=== PATIENT | male | born 1955 | race Caucasian/White ===

== ENCOUNTER 2017-07-18 06:08 | Day surgery (SDC) | payer BC ==
[2017-07-17 12:29] VITALS: BMI 29.7
--- NOTE | 2017-07-18 01:44 | HP ---
SHORT STAY HISTORY AND PHYSICAL DATE OF ADMISSION: 07/18/2017 HISTORY OF PRESENT ILLNESS: This is a 62-year-old male who comes for colonoscopy for colon cancer [facility]. The patient has no specific GI symptoms. There is no family history of colon cancer. His bowel movements are regular. ALLERGIES: None. SOCIAL HISTORY: The patient does not smoke or drink alcohol. MEDICAL ILLNESSES: 1. Hypertension. 2. Elevated PSA. 3. History of GI bleeding in 2016, where he has no voice. 4. Benign prostatic hypertrophy. PHYSICAL EXAMINATION: VITAL SIGNS: Pulse is 70, blood pressure 130/80. HEENT: Conjunctivae clear. CARDIOVASCULAR SYSTEM: First and second heart sounds normal. LUNGS: Clear to auscultation. ABDOMEN: Soft to palpate. No organomegaly. No tenderness. No masses. ADMITTING DIAGNOSIS: Colonoscopy for colon cancer screening.
[2017-07-18] MEDS ORDERED: PROPOFOL 200 MG/20 ML VIAL ONE (11:13)
--- NOTE | 2017-07-18 12:45 | OP ---
DATE OF SURGERY: 07/18/2017 OPERATIVE PROCEDURE: Colonoscopy with polypectomy. PREOPERATIVE DIAGNOSIS: A 62-year-old male undergoing colonoscopy for colon cancer screeni ng. POSTOPERATIVE DIAGNOSES: 1. Large, broad-based sessile polyp at the lower sigmoid colon area. 2. Hemorrhoids. DESCRIPTION OF PROCEDURE: The patient was placed on his left lateral position and was given sedation by Anesthesia Department. A rectal exam was done before the scope was advanced into the rectum. No lesion felt on rectal exam. A [employer] video colonoscope was introduced into the rectum and advanced all the way into the cecum. The mucosa appears normal throughout the colon with normal vascular russ julia. The appendiceal orifice, ileocecal valve, cecum, no pathology seen. Withdrawal of scope in cec um, ascending colon, hepatic flexure, transverse colon, splenic flexure, no pathology seen. The desc ending colon, high sigmoid colon, no pathology seen. Around 20 cm from the anal margin, correspondin g to the lower sigmoid colon area, he was found to have a large broad-based sessile polyp. This was removed with snare cautery with good hemostasis. Retroflexion of the scope in the rectum showed hemo rrhoids. DISCHARGE PLANNING: This is a 62-year-old male, who came for a colonoscopy. He underwent a colonoscopy to rule out a large sessile broad-based polyp. DISCHARGE RECOMMENDATIONS: 1. The patient advised to call me if he developed any abdominal pain or hematochezia. 2. In the absence of any of the symptoms, he will come back to me in 2 weeks. Depending upon the biopsy, I will make further recommendations about followup colonoscopy.
== END 2017-07-18 09:48 | disposition home or self-care (01) ==
LOC: SDC 06:08
PROVIDERS: ATTEND Internal Medicine Gastroenterology
PROC: 0DBN8ZX Excision of Sigmoid Colon, Via Natural or Artificial Opening Endoscopic, Diagnostic (ICD-10-PCS; principal; 2017-07-18)
DX: Z12.11 Encounter for screening for malignant neoplasm of colon (principal); D12.5 Benign neoplasm of sigmoid colon; I10 Essential (primary) hypertension; N40.0 Benign prostatic hyperplasia without lower urinary tract symptoms; K64.9 Unspecified hemorrhoids; Z79.899 Other long term (current) drug therapy
CPT/HCPCS: 88305; J2704